=== PATIENT | female | born 1965 | race Caucasian/White ===

== ENCOUNTER 2017-01-29 11:02 | Emergency (ER) | payer MEDICARE, OTHER ==
[~2017-01-29] VITALS: Ht 165.1 cm; Wt 90.0 kg
[~2017-01-29 11:02] MED LIST: AMOX875T20 PO; ATAZ200 PO; EMTR200 PO; LEVO.05 PO; METH10TA PO; REPL5000 OR
[2017-01-29 11:06] VITALS: BP 131/66; PULSE 81; RESP 17; TEMP 98.2; O2SAT 99
--- NOTE | 2017-01-29 11:22 | PD ---
HPI . dog bite yesterday Chief Complaint: Bite or Sting Time Seen by Provider: 11:22 Travel History International Travel<30 days: No Contact w/Intl Traveler<30days: No Traveled to known affect area: No History of Present Illness HPI 51-year-old female with history of HIV and diabetes type 2 here with a dog bite she sustained yesterday. Her son's dog bit her to the right popliteal area yesterday. She tells me the dog is not up-to-date on vaccines. Her ID doc has spoken with Dr. Pepe and requesting IV fluids, CT scan of the right lower extremity. He is concerned about her prior history and risk factors. PFSH Past Medical History Arthritis: Yes Autoimmune Disease: Yes (HIV + FOR 8 YRS) Social History Alcohol Use: No Tobacco Use: Yes Substance Use: No Allergies-Medications (Allergen,Severity, Reaction): Coded Allergies: Sulfa (Verified Adverse Reaction, Severe, GI UPSET, 01/29/17) Reported Meds & Prescriptions Reported Meds & Active Scripts Active Reported Levothyroxine (Levothyroxine Sodium) 100 Mcg Tab 100 Mcg PO DAILY Methadone (Methadone HCl) 10 Mg Tab 10 Mg PO DAILY Methadone (Methadone HCl) 10 Mg Tab 20 Mg PO DAILY Methadone (Methadone HCl) 10 Mg Tab 10 Mg PO DAILY Invokana (Canagliflozin) 100 Mg Tab 100 Mg PO DAILY Take before 1st meal of day. Genvoya (Exnvqdibgdym-Mlxdmgxgpe-Xbknridsgpaj-Tenofvir) [phone] Mg Tab 1 Tab PO DAILY Aspirin 81 Mg Tabdr 81 Mg PO DAILY Crestor (Rosuvastatin Calcium) 5 Mg Tab 5 Mg PO DAILY Acyclovir 200 Mg Cap 200 Mg PO 5 TIMES A DAY Review of Systems General / Constitutional: No: Fever Eyes: No: Visual changes HENT: No: Headaches Cardiovascular: No: Chest Pain or Discomfort Respiratory: No: Shortness of Breath Gastrointestinal: No: Abdominal Pain Genitourinary: No: Dysuria Musculoskeletal: No: Pain Skin: Positive Other (right popliteal dog bite), No Rash Neurologic: No: Weakness Psychiatric: No: Depression Endocrine: No: Polydipsia Hematologic/Lymphatic: No: Easy Bruising Physical Exam Narrative GENERAL: AAO x 3, no acute distress, Well-nourished, well-developed patient. SKIN: Warm and dry. No visible rashes or bruising. right popliteal fossa with 4 scratch valencia and one puncture wound, + ecchymosis, edema and some erythema, HEAD: Normocephalic and atraumatic. EYES: No scleral icterus. No injection or drainage. ENT: No nasal drainage noted. Mucous membranes pink. Airway patent. NECK: Supple, trachea midline. No JVD. CARDIOVASCULAR: Regular rate and rhythm without murmurs, gallops, or rubs. RESPIRATORY: Breath sounds equal bilaterally. No accessory muscle use. No rhonchi or rales. GASTROINTESTINAL: visual inspection normal EXTREMITIES: No cyanosis R popliteal fossa: see skin, + tenderness to touch, pulses intact BACK: Nontender without obvious deformity. No CVA tenderness. PSYCH: AAO x 3, normal affect. Data Data Last Documented VS Vital Signs Date Time Temp Pulse Resp B/P Pulse Ox O2 Delivery O2 Flow Rate FiO2 01/29/17 11:06 98.2 81 17 131/66 99 Orders Complete Blood Count With Diff (01/29/17 11:58) Comprehensive Metabolic Panel (01/29/17 11:58) Ct Knee W Iv Contrast (01/29/17 ) Tetanus/Diphtheria Tox Adult (Tetanus/Di (01/29/17 12:45) Amoxicil-Clavulanate (Augmentin) (01/29/17 13:15) Sodium Chlorid 0.9% 500 Ml Inj (Ns 500 M (01/29/17 13:15) Labs Laboratory Tests Test 01/29/17 13:05 White Blood Count 8.4 TH/MM3 Red Blood Count 4.77 MIL/MM3 Hemoglobin 13.6 GM/DL Hematocrit 41.1 % Mean Corpuscular Volume 86.1 FL Mean Corpuscular Hemoglobin 28.6 PG Mean Corpuscular Hemoglobin 33.2 % Concent Red Cell Distribution Width 13.5 % Platelet Count 185 TH/MM3 Mean Platelet Volume 8.3 FL Neutrophils (%) (Auto) 69.2 % Lymphocytes (%) (Auto) 20.5 % Monocytes (%) (Auto) 7.5 % Eosinophils (%) (Auto) 2.2 % Basophils (%) (Auto) 0.6 % Neutrophils # (Auto) 5.8 TH/MM3 Lymphocytes # (Auto) 1.7 TH/MM3 Monocytes # (Auto) 0.6 TH/MM3 Eosinophils # (Auto) 0.2 TH/MM3 Basophils # (Auto) 0.0 TH/MM3 CBC Comment DIFF FINAL Differential Comment Sodium Level 139 MEQ/L Potassium Level 4.0 MEQ/L Chloride Level 104 MEQ/L Carbon Dioxide Level 28.4 MEQ/L Anion Gap 7 MEQ/L Blood Urea Nitrogen 14 MG/DL Creatinine 0.73 MG/DL Estimat Glomerular Filtration 84 ML/MIN Rate Random Glucose 94 MG/DL Calcium Level 8.9 MG/DL Total Bilirubin 0.7 MG/DL Aspartate Amino Transf 21 U/L (AST/SGOT) Alanine Aminotransferase 28 U/L (ALT/SGPT) Alkaline Phosphatase 39 U/L Total Protein 7.3 GM/DL Albumin 3.7 GM/DL [facility] Medical Decision Making Medical Screen Exam Complete: Yes Emergency Medical Condition: Yes Medical Record Reviewed: Yes Differential Diagnosis dog bite, HIV, cellulitis, Narrative Course 51-year-old female with history of HIV and diabetes type 2 here with a dog bite she sustained yesterday. Her son's dog bit her to the right popliteal area yesterday. She tells me the dog is not up-to-date on vaccines. Her ID doc has spoken with Dr. Pepe and requesting IV fluids, CT scan of the right lower extremity. He is concerned about her prior history and risk factors. Patient spoke with her doctor and he does not want her receiving the rabies vaccination. Patient was seen and examined. Case discussed with . We will go ahead and order the requested tests. We discussed rabies PPX and she discussed with her doctor. She has declined rabies. Her last tetanus vaccine was in 2012, but her infectious disease doctor requests again. I have initiated the workup. The next provider will determine her disposition. I have spoken to Dr. Jordan. She is aware of the case. Diagnosis Primary Impression: Dog bite Qualified Code: W54.0XXA - Dog bite, initial encounter Condition: Stable Manuela Murphy January 29, 2017 11:22
[2017-01-29] MEDS ORDERED: ROSU5 PO (12:12)
[2017-01-29] MEDS ORDERED: ACYC200C66 PO (12:12)
[2017-01-29] MEDS ORDERED: ACYC800T PO (12:12)
[2017-01-29] MEDS ORDERED: CANA100T PO (12:17)
[2017-01-29] MEDS ORDERED: ASPI1TAB69 PO (12:17)
[2017-01-29] MEDS ORDERED: LEVO100T5 PO (12:17)
[2017-01-29] MEDS ORDERED: METH10TA PO (12:17)
[2017-01-29] MEDS ORDERED: ELVI1TAB3 PO (12:17)
[2017-01-29] MEDS ORDERED: TETANUS/DIPHTHERIA TOXOID ADULT 0.5 ML VIAL IM ONE (12:45)
[2017-01-29] MEDS ORDERED: AMOXICILLIN/CLAVULANATE K 875 MG TAB PO ONE (13:15)
[2017-01-29] MEDS ORDERED: SODIUM CHLORID 0.9% 500 ML INJ 500 ML IV ONE (13:15)
--- NOTE | 2017-01-29 13:21 | PD ---
Physical Exam Time Seen by Provider: 13:10 Data Data Last Documented VS Vital Signs Date Time Temp Pulse Resp B/P Pulse Ox O2 Delivery O2 Flow Rate FiO2 01/29/17 11:06 98.2 81 17 131/66 99 Orders Complete Blood Count With Diff (01/29/17 11:58) Comprehensive Metabolic Panel (01/29/17 11:58) Ct Knee W Iv Contrast (01/29/17 ) Tetanus/Diphtheria Tox Adult (Tetanus/Di (01/29/17 12:45) Amoxicil-Clavulanate (Augmentin) (01/29/17 13:15) Sodium Chlorid 0.9% 500 Ml Inj (Ns 500 M (01/29/17 13:15) Iohexol 350 Inj (Omnipaque 350 Inj) (01/29/17 14:59) Oxycodone-Acetamin 5-325 Mg (Percocet (01/29/17 17:00) Labs Laboratory Tests Test 01/29/17 13:05 White Blood Count 8.4 TH/MM3 Red Blood Count 4.77 MIL/MM3 Hemoglobin 13.6 GM/DL Hematocrit 41.1 % Mean Corpuscular Volume 86.1 FL Mean Corpuscular Hemoglobin 28.6 PG Mean Corpuscular Hemoglobin 33.2 % Concent Red Cell Distribution Width 13.5 % Platelet Count 185 TH/MM3 Mean Platelet Volume 8.3 FL Neutrophils (%) (Auto) 69.2 % Lymphocytes (%) (Auto) 20.5 % Monocytes (%) (Auto) 7.5 % Eosinophils (%) (Auto) 2.2 % Basophils (%) (Auto) 0.6 % Neutrophils # (Auto) 5.8 TH/MM3 Lymphocytes # (Auto) 1.7 TH/MM3 Monocytes # (Auto) 0.6 TH/MM3 Eosinophils # (Auto) 0.2 TH/MM3 Basophils # (Auto) 0.0 TH/MM3 CBC Comment DIFF FINAL Differential Comment Sodium Level 139 MEQ/L Potassium Level 4.0 MEQ/L Chloride Level 104 MEQ/L Carbon Dioxide Level 28.4 MEQ/L Anion Gap 7 MEQ/L Blood Urea Nitrogen 14 MG/DL Creatinine 0.73 MG/DL Estimat Glomerular Filtration 84 ML/MIN Rate Random Glucose 94 MG/DL Calcium Level 8.9 MG/DL Total Bilirubin 0.7 MG/DL Aspartate Amino Transf 21 U/L (AST/SGOT) Alanine Aminotransferase 28 U/L (ALT/SGPT) Alkaline Phosphatase 39 U/L Total Protein 7.3 GM/DL Albumin 3.7 GM/DL [facility] Medical Record Reviewed: Yes Supervised Visit with SHAYY: No Narrative Course I assumed care of this patient from the fast track area of the emergency room. Please see previous providers notes. Briefly this is a 51-year-old female history of HIV who was bitten by her own dog on the posterior/lateral right knee yesterday at 4 PM. She went to see her infectious disease doctor, Dr. Coyle, today who sent her here for further evaluation. Per previous provider he was requesting basic lab work and a CT of the knee. Examination reveals superficial linear abrasions to the lateral right knee and posterior right knee , slightly deeper puncture wound to the posterior right knee, with some ecchymosis. There is no erythema or drainage. The compartments of the right Are soft. There is no evidence of a joint effusion or septic arthritis. Local wound care was provided including irrigation of the wounds, Polysporin, gauze and Jeffrey. Awaiting CT, lab work. Edema and gas in the posterior soft tissues at the level the knee consistent with the history of trauma/dog bite in this region. Edema extends into the posterior aspect of the proximal gastrocnemius muscle. No evidence of abscess. No foreign body identified. CT of the knee is consistent with history of puncture wound from a dog bite. No evidence of gas producing infectious process on examination. The patient will be discharged with prescription for Augmentin, outpatient follow-up with her infectious disease doctor. Discussed signs and symptoms of infectious processes that would warrant return to the emergency room. She is stable for discharge. Diagnosis Primary Impression: Dog bite Qualified Code: W54.0XXA - Dog bite, initial encounter Additional Instruction: Antibiotic as prescribed. Wash the area with warm soap and water and apply antibiotic cream twice a day. Follow-up with your physician. Return for any acutely new or worsening symptoms such as severely painful and reddened swollen knee, increasing area of red skin, red streaks up the leg, fevers. Med/Other Pt SpecificInfo: Prescription(s) given, Wound Care Scripts Amoxicillin-Clavulanate (Augmentin)875-125 mg [id number] Mg PO BID 7 Days Ref 0 not for use in CrCl <30 ml/min. Prov:Nikki,Shravanti R. MD 01/29/17 Disposition: 01 DISCHARGE HOME Condition: Stable Sp Colon January 29, 2017 13:21
[2017-01-29 13:28] LABS: AUTOMATED NEUTROPHIL # 5.8 TH/MM3 (1.8-7.7); BASOPHIL % 0.6 % (0.0-2.0); EOSINOPHIL # 0.2 TH/MM3 (0-0.4); EOSINOPHIL % 2.2 % (0.0-4.0); HEMATOCRIT 41.1 % (35.0-46.0); HEMO FLAGS DIFF FINAL; LYMPH % 20.5 % (9.0-44.0); LYMPHOCYTE # 1.7 TH/MM3 (1.0-4.8); MEAN CELL VOLUME 86.1 FL (80.0-100.0); MEAN CORPUSCULAR HEMOGLOBIN 28.6 PG (27.0-34.0); MEAN CORPUSCULAR HGB CONC 33.2 % (32.0-36.0); MONO % 7.5 % (0.0-8.0); NEUT % 69.2 % (16.0-70.0); PLATELET COUNT 185 TH/MM3 (150-450); RED BLOOD COUNT 4.77 MIL/MM3 (4.00-5.30); RED CELL DISTRIBUTION WIDTH 13.5 % (11.6-17.2); WHITE BLOOD COUNT 8.4 TH/MM3 (4.0-11.0)
[2017-01-29 13:48] LABS: ANION GAP 7 MEQ/L (5-15); AST (GOT) 21 U/L (15-37); BICARBONATE 28.4 MEQ/L (21.0-32.0); BLOOD UREA NITROGEN 14 MG/DL (7-18); CHLORIDE 104 MEQ/L (98-107); GLOMERULAR FILTRATION RATE 84 ML/MIN (>89); SODIUM (NA) 139 MEQ/L (136-145)
[2017-01-29 13:54] LABS: ALKALINE PHOSPHATASE 39 U/L (45-117); ALT (GPT) 28 U/L (10-53); TOTAL BILIRUBIN ADULT 0.7 MG/DL (0.2-1.0)
[2017-01-29] MEDS ORDERED: IOHEXOL 350 MG/ML 10 ML VIAL (for RAD DIAG) IV ONE (14:59)
--- NOTE | 2017-01-29 16:48 | RADRPT ---
EXAM DATE/TIME: 01/29/2017 14:56 [facility] COMPARISON: No previous studies available for comparison. INDICATIONS : Dog bite posterior leg just below knee. IV CONTRAST: 68 cc Omnipaque 350 (iohexol) IV RADIATION DOSE: 38.82 CTDIvol (mGy) MEDICAL HISTORY : None SURGICAL HISTORY : Left knee sx. ENCOUNTER: Initial ACUITY: 2 days PAIN SCALE: 7/10 LOCATION: Right posterior and lateral knee. TECHNIQUE: Volumetric scanning of the knee was performed. Using automated exposure control and adjustment of th e mA and/or kV according to patient size, radiation dose was kept as low as reasonably achievable to obtain optimal diagnostic quality images. FINDINGS: BONES: No evidence of fracture. Alignment is within normal limits. JOINTS: No evidence of joint narrowing or effusion. SOFT TISSUES: There is gas and edema in the posterior superficial soft tissue at just below level of the knee. No o rganize rounded peripherally enhancing fluid collections. There is edema in the posterior aspects of the proximal gastrocnemius muscles. The major vascular structures are intact. CONCLUSION: Edema and gas in the posterior soft tissues at the level the knee consistent with the history of trau ma/dog bite in this region. Edema extends into the posterior aspect of the proximal gastrocnemius mus lisa. No evidence of abscess. No foreign body identified. Tim Paulino MD on January 29, 2017 at 16:43 Board Certified Radiologist. This report was verified electronically.
[2017-01-29] MEDS ORDERED: AUGM875T PO (16:57)
[2017-01-29] MEDS ORDERED: oxyCODONE/ACETAMINOPHEN 5 MG/325 MG TAB PO ONE (17:00)
== END 2017-01-29 17:09 | disposition home or self-care (01) ==
LOC: NEPD 11:02
DX: S81.051A Open bite, right knee, initial encounter (principal); B20 Human immunodeficiency virus [HIV] disease; W54.0XXA Bitten by dog, initial encounter; Z23 Encounter for immunization; Z72.0 Tobacco use
CPT/HCPCS: 73701; 80053; 85025; 90471; 90714; 96360; 99284; J7040; Q9967